=== PATIENT | male | born 1995 | race Caucasian/White ===

== ENCOUNTER 2018-07-14 03:39 | Emergency (ER) | payer OTHER ==
[~2018-07-14] VITALS: Ht 175.3 cm; Wt 74.8 kg
[2018-07-14 04:09] LABS: HEMATOCRIT 50.1 % (42.0-52.0); HEMOGLOBIN 17.7 gm/dL (14.0-18.0); MCH 33.1 pg (26.0-34.0); MCHC 35.4 g/dL (28.0-37.0); MCV 93.7 fL (80.0-100.0); MPV 8.9 fl. (7.2-11.1); NUCLEATED RBCS 0 /100WBC; PLATELET COUNT* 210 thou/uL (150-400); RBC 5.35 mil/uL (4.50-6.00); RDW-CV 12.7 % (10.5-14.5); WBC 6.2 thou/uL (4.0-11.0)
[2018-07-14 04:29] LABS: CALCIUM 8.9 mg/dL (8.5-10.1); CREATININE 1.2 mg/dL (0.6-1.3); POTASSIUM 3.5 mmol/L (3.5-5.1)
[2018-07-14 04:33] LABS: ALBUMIN 4.2 g/dL (3.4-5.0); TOTAL BILIRUBIN 4.4 mg/dL (<0.1-1.0); TOTAL PROTEIN 8.2 g/dL (6.4-8.2)
[2018-07-14] MEDS ORDERED: PHENERGAN 25 MG25 M1 PO ×2 (04:54→05:21)
[2018-07-14 05:38] VITALS: BP 118/76
[2018-07-14 06:59] LABS: ABSOLUTE LYMPHOCYTES 0.4 thou/uL (0.8-5.3); ABSOLUTE MONOCYTES 0.1 thou/uL (0.0-1.2); ABSOLUTE NEUTROPHILS 5.8 thou/uL (1.6-8.1); PLATELET ESTIMATE ADEQUATE
== END 2018-07-14 05:40 | disposition home or self-care (01) ==
LOC: M.ERS 03:39
PROVIDERS: Emergency Medicine
DX: R11.2 Nausea with vomiting, unspecified (principal); R19.7 Diarrhea, unspecified

== ENCOUNTER 2018-10-20 15:27 | Inpatient (IN) | payer OTHER ==
[~2018-10-20] VITALS: Ht 175.3 cm; Wt 74.8 kg
[~2018-10-20 15:27] MED LIST: PHENERGAN 25 MG25 M1 PO
[2018-10-20 15:33] VITALS: BP 96/56
[2018-10-20 16:28] LABS: URINE BILIRUBIN NEGATIVE (Negative); URINE BLOOD NEGATIVE (Negative); URINE CLARITY CLEAR; URINE COLOR YELLOW; URINE GLUCOSE-RANDOM NEGATIVE (Negative); URINE LEUKOCYTES-REFLEX NEGATIVE (Negative); URINE NITRITE-REFLEX NEGATIVE (Negative); URINE PROTEIN NEGATIVE (Negative); URINE UROBILINOGEN 0.2 E.U./dl (0.2-1.0)
[2018-10-20 16:29] LABS: URINE KETONES 3+ (Negative)
[2018-10-20 16:45] LABS: HEMATOCRIT 47.3 % (42.0-52.0); HEMOGLOBIN 16.1 gm/dL (14.0-18.0); MCH 32.1 pg (26.0-34.0); MCV 94.3 fL (80.0-100.0); MPV 9.7 fl. (7.2-11.1); NUCLEATED RBCS 0 /100WBC; PLATELET COUNT* 214 thou/uL (150-400); RBC 5.01 mil/uL (4.50-6.00); WBC 15.9 thou/uL (4.0-11.0)
[2018-10-20 16:58] LABS: ALBUMIN 4.2 g/dL (3.4-5.0); CALCIUM 9.4 mg/dL (8.5-10.1); POTASSIUM 3.7 mmol/L (3.5-5.1); TOTAL BILIRUBIN 3.9 mg/dL (<0.1-1.0); TOTAL PROTEIN 9.3 g/dL (6.4-8.2)
[2018-10-20 17:10] LABS: ABSOLUTE LYMPHOCYTES 0.6 thou/uL (0.8-5.3); ABSOLUTE MONOCYTES 1.4 thou/uL (0.0-1.2); ABSOLUTE NEUTROPHILS 13.8 thou/uL (1.6-8.1)
[2018-10-20 17:11] LABS: PLATELET ESTIMATE ADEQUATE
--- NOTE | 2018-10-20 17:18 | NUR ---
MARY NOTIFIED UPON PT RETURN FROM CT. PT WAS NOT CONNECTED TO MONITOR HE WAS NOT CONNECTED PRIOR TO GOING TO CT
[2018-10-20 19:16] VITALS: BP 112/72
--- NOTE | 2018-10-20 19:27 | NUR ---
PATIENT C/O RLQ ABDOMINAL PAIN RATED 7-8/10. ORDERS PER DR. GREEN/ANESTHESIA TO GIVE FENTANYL IN PREOP.
--- NOTE | 2018-10-20 19:43 | NUR ---
RLQ ABDOMINAL PAIN IMPROVED SOME, BUT STILL RATED 5/10. ADDITIONAL FENTANYL GIVEN AT THIS TIME DOCUMENTED.
[2018-10-20 23:30] VITALS: BP 112/62
[2018-10-21 02:30] VITALS: BP 96/54
[2018-10-21 04:46] LABS: CALCIUM 8.4 mg/dL (8.5-10.1); POTASSIUM 3.9 mmol/L (3.5-5.1); TOTAL BILIRUBIN 2.5 mg/dL (<0.1-1.0); TOTAL PROTEIN 6.8 g/dL (6.4-8.2)
[2018-10-21 05:00] LABS: HEMATOCRIT 39.4 % (42.0-52.0); MCH 32.1 pg (26.0-34.0); MCHC 34.1 g/dL (28.0-37.0); MCV 94.1 fL (80.0-100.0); RBC 4.19 mil/uL (4.50-6.00); RDW-CV 11.9 % (10.5-14.5); WBC 11.7 thou/uL (4.0-11.0)
[2018-10-21 05:46] LABS: HEMOGLOBIN 13.5 gm/dL (14.0-18.0)
--- NOTE | 2018-10-21 07:50 | NUR ---
PATIENT ADMITTED TO UNIT FROM PACU AT APPROXIMATELY 2230. VSS ON RA. PAIN WELL CONTROLLED. REPORT GIVEN FROM PACU NURSE. FAMILY WITH PATIENT. MEDICATIONS GIVEN ORDERED AND CHARTED. DRESSINGS TO ABDOMINAL AREA ARE C/D/I AND AMAN DRAIN IN PLACE TO SUCTION. IV IN LEFT AC-NS @ 100ML/HR. IV ABT GIVEN WITHOUT ANY ADVERSE SIDE EFFECTS NOTED. PATIENT URINATING ADEQUATELY. PATIENT INSTRUCTED TO USE CALL LIGHT WHEN NEEDING ASSISTANCE. HOURLY ROUNDS MADE. WILL CONTINUE WITH PLAN OF CARE AND NURSING TO MONITOR.
[2018-10-21 08:00] VITALS: BP 118/72
--- NOTE | 2018-10-21 18:51 | NUR ---
PT ALERT AND ORIENTED X 4. DENIED PAIN AND NAUSEA IN MORNING. C/O INCREASED ABDOMINAL PAIN IN AFTERNOON. PAIN MANAGED WITH HYDROCODONE AND IV MORPHINE. 1VF INFUSING @ 100 MLS/HR. INCISIONS X 2 WITH DRESSING-INTACT. AMAN DRAIN IN PLACE. VS STABLE. UP TO BR WITH SBA. INCREASED DIET-TOLERATED WELL-DENIED NAUSEA. HOURLY ROUNDS MAINTAINED. CALL LIGHT WITHIN REACH.
[2018-10-21 22:30] VITALS: BP 113/69
[2018-10-22] VITALS: BP 119/76
[2018-10-22 04:00] VITALS: BP 138/72
--- NOTE | 2018-10-22 04:53 | NUR ---
PATIENT RESTLESS FROM TIME TO TIME. C/O PAIN AND SLIGHT NAUSEA THIS AM. SURGERY NOTIFIED. SPOKE WITH DR. ALVAREZ REGARDING C/O PAIN, NAUSEA AND OUTPUT IN AMAN DRAIN. NEW ORDERS GIVEN FOR NAUSEA MEDICATION, PAIN MEDICATION PRN AND LABS TO BE DRAWN THIS AM. NEW ORDER TO MAKE PATIENT NPO AT THIS TIME. VSS ON RA. ABDOMINAL INCISIONS WELL APPROXIMATED AND AMAN DRAIN IN PLACE WITH SLIGHT CLEAR/PINKISH COLORED DRAINAGE. IV IN RIGHT WRIST-NS @ 100ML/HR. PATIENT INSTRUCTED TO USE CALL LIGHT WHEN NEEDING ASSISTANCE. HOURLY ROUNDS MADE. WILL CONTINUE WITH PLAN OF CARE AND NURSING TO MONITOR.
[2018-10-22 05:34] LABS: HEMOGLOBIN 14.2 gm/dL (14.0-18.0); MCH 31.8 pg (26.0-34.0); MCHC 33.9 g/dL (28.0-37.0); MCV 93.7 fL (80.0-100.0); MPV 9.9 fl. (7.2-11.1); RBC 4.48 mil/uL (4.50-6.00); RDW-CV 11.9 % (10.5-14.5); WBC 9.1 thou/uL (4.0-11.0)
[2018-10-22 05:36] LABS: CALCIUM 8.2 mg/dL (8.5-10.1); CREATININE 0.8 mg/dL (0.6-1.3); POTASSIUM 3.6 mmol/L (3.5-5.1)
[2018-10-22 07:00] LABS: ALBUMIN 2.9 g/dL (3.4-5.0); DIRECT BILIRUBIN 0.2 mg/dL (<0.1-0.3); TOTAL PROTEIN 6.9 g/dL (6.4-8.2)
[2018-10-22 08:00] VITALS: BP 119/75
[2018-10-22 11:31] VITALS: BP 113/79
[2018-10-22 15:18] VITALS: BP 114/75
--- NOTE | 2018-10-22 17:07 | PATH ---
[address] [address] PATHOLOGY RPT PROCEDURE Name: JENNY THIBODEAUX Room: [address] IN M.R.#: [id number] Admission: 10/20/18 Date of : 95 Discharge: Report #: [id number] Path Case #: [id number] [facility] Accession Number: [id number] . 01 Material submitted: . APPENDIX . 01 Clinical history: . Acute appendicitis . 02 Diagnosis: Appendix: - Acute appendicitis, periappendicitis and serositis. . (LEILANI:catrachita; 10/22/2018) [facility]/10/22/2018 . 02 Electronically signed: . Elliot Sanchez MD, Pathologist NPI- [id number] . 01 Gross description: . The specimen is received in formalin, labeled "Jenny Thibodeaux, appendix", is a diffusely hemorrhagic appendix measuring 5.2 cm in length and up to 1.2 cm in diameter with abundantly attached indurated, hemorrhagic mesoappendix measuring 4.0 x 1.7 x 1.0 cm. The proximal margin is closed by a linear staple line measuring 1.3 cm in length with an average 0.2 cm width. The staple line and the adjacent serosa is inked black. The serosa is wright-brown and covered by hardin-white fibrinopurulent material towards the distal aspect and with a possible perforation measuring 0.3 x 0.2 cm that is 2.2 cm from the staple line proximal margin. This possible perforation is inked blue. The lumen is filled with dark brown hemorrhagic material and no discrete fecalith. The wall has an average thickness of 0.3 cm. [employer]ader tissue is submitted as follows: A1. Section adjacent to staple line inked black and proximal appendix A2. Possible perforation inked blue. A3. One half of distal tip (SWS; 10/21/2018) SHS/SHS . 02 Pathologist provided ICD-10: K35.80, K65.8 . 02 CPT . 918019 Specimen Comment: A courtesy copy of this report has been sent to Specimen Comment: [phone]. [place] [address] PATHOLOGY RPT PROCEDURE Name: BARBARAJENNY JIMMY Room: [address] IN M.R.#: [id number] Admission: 10/20/18 Date of : 89 Discharge: Report #: [id number] Path Case #: [id number] Specimen Comment: Report sent to Performed at: 01 [facility] [place] [address] [facility] [address], [place], [place] [id number] MD Jaxon Gage MD Phone: [phone] Performed at: 02 [facility] [address], [place], [place] [id number] MD Elliot Sanchez MD Phone: [phone]
--- NOTE | 2018-10-22 17:34 | NUR ---
PT WAS A&Ox4 THROUGHOUT SHIFT. VITALS STABLE. NPO EXCEPT MEDS. IV IN R FA PATENT, INFUING. NAUSEA CONTROLLED WITH ZOFRAN. THREW UP ONCE CLEAR LIQUID. AMAN DRAIN HAS DRAINED A SIGNIFICANT AMOUNT OF CLEAR YELLOW DRAINAGE, CHARTED. PAIN CONTROLLED WITH MORPHINE AND NORCO. UP STAND BY. FAMILY IN ROOM. CALL LIGHT WITHIN REACH. WILL CONTINUE TO MONITOR.
[2018-10-22 22:00] VITALS: BP 118/73
[2018-10-23 04:21] LABS: ABSOLUTE BASOPHILS 0.1 thou/uL (0.0-0.2); ABSOLUTE EOSINOPHILS 0.1 thou/uL (0.0-0.7); ABSOLUTE LYMPHOCYTES 1.3 thou/uL (0.8-5.3); ABSOLUTE NEUTROPHILS 6.4 thou/uL (1.6-8.1); BASOPHILS 0.6 %; EOSINOPHILS 0.6 %; HEMATOCRIT 42.2 % (42.0-52.0); HEMOGLOBIN 14.2 gm/dL (14.0-18.0); MCHC 33.7 g/dL (28.0-37.0); MCV 94.8 fL (80.0-100.0); MONOCYTES 11.3 %; MPV 9.2 fl. (7.2-11.1); NUCLEATED RBCS 0 /100WBC; PLATELET COUNT* 240 thou/uL (150-400); POLYS 72.5 %; RBC 4.45 mil/uL (4.50-6.00); RDW-CV 12.1 % (10.5-14.5); WBC 8.8 thou/uL (4.0-11.0)
[2018-10-23 04:35] LABS: CALCIUM 8.2 mg/dL (8.5-10.1); CREATININE 0.9 mg/dL (0.6-1.3); MAGNESIUM 1.7 mg/dL (1.8-2.4); PHOSPHORUS* 3.4 mg/dL (2.5-4.9); POTASSIUM 3.7 mmol/L (3.5-5.1)
[2018-10-23 08:00] VITALS: BP 110/67
--- NOTE | 2018-10-23 08:11 | NUR ---
PATIENT HAS SLEPT WELL THROUGHOUT THE NIGHT. VSS ON RA. PAIN WELL CONTROLLED. NO NAUSEA OR VOMITING. ABDOMINAL INCISIONS WELL APPROXIMATED AND AMAN DRAIN IN PLACE WITH CLEAR/YELLOW DRAINAGE. IV IN RIGHT WRIST-NS @ 100ML/HR. PATIENT INSTRUCTED TO USE CALL LIGHT WHEN NEEDING ASSISTANCE. HOURLY ROUNDS MADE. WILL CONTINUE WITH PLAN OF CARE AND NURSING TO MONITOR.
[2018-10-23 15:37] VITALS: BP 105/60
[2018-10-23 15:38] VITALS: BP 105/60
--- NOTE | 2018-10-23 17:43 | NUR ---
PT REMAINED A&Ox4 THROUGHOUT SHIFT. DRAIN HAD MINIMAL DRAINAGE OUT. VITALS STABLE. WALKED AROUND ROOM AND HALLS SOME. IV IN R FA PATENT, INFUSING. PAIN CONTROLLED WITH TORADOL. UP STAND BY. TOLERATED CLEAR LIQUID DIET. CALL LIGHT WITHIN REACH. WILL CONTINUE TO MONITOR.
[2018-10-23 19:50] VITALS: BP 115/69
[2018-10-24 04:00] VITALS: BP 111/64
--- NOTE | 2018-10-24 05:48 | NUR ---
PT REMAINED A&O X 4. VITALS, SPO2 STABLE RA. PAIN CONTROLLED WITH IV PAIN MED. NO NAUSEA OR VOMITING. SURGICAL INCISION SITE CLEAN, DRY, INTACT. PT RESTING QUIETLY ON HOURLY ROUNDINGS. IV FLUID IS RUNNING. WILL CONTINUE TO MONITOR.
[2018-10-24 07:30] VITALS: BP 120/64
[2018-10-24 07:46] LABS: HEMATOCRIT 40.2 % (42.0-52.0); HEMOGLOBIN 13.8 gm/dL (14.0-18.0); MCHC 34.3 g/dL (28.0-37.0); MCV 93.3 fL (80.0-100.0); MPV 8.3 fl. (7.2-11.1); RBC 4.31 mil/uL (4.50-6.00); RDW-CV 11.9 % (10.5-14.5); WBC 6.5 thou/uL (4.0-11.0)
[2018-10-24 07:57] LABS: CALCIUM 8.3 mg/dL (8.5-10.1); CREATININE 0.8 mg/dL (0.6-1.3); MAGNESIUM 1.7 mg/dL (1.8-2.4); PHOSPHORUS* 3.7 mg/dL (2.5-4.9); POTASSIUM 3.3 mmol/L (3.5-5.1)
--- NOTE | 2018-10-24 15:23 | NUR ---
PT.RESTING IN BED. SAID HE WOULD PROBABLY GO HOME TOMORROW. 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 LIVES WITH HIS MOM AND DAD. HE IS INDEPENDENT AT HOME AND WORKS. HE DOES NOT HAVE INSURANCE. GAVE HIM PACKET FOR THE UNINSURED. 2 DRUG CARDS GIVEN ALSO. TOLD HIM IF HIS PARENTS HAD INSURANCE HE COULD PROBABLY GET ON THEIR INSURANCE PLANS UNTIL HE WAS 26. HE SAID HE WOULD CHECK INTO IT.
[2018-10-24 15:55] VITALS: BP 123/72
--- NOTE | 2018-10-24 17:50 | NUR ---
ASSUMED CARE OF PATIENT AT APPROX 0730. ALERT AND OREINTED X4. ASSESSMENT COMPLETED AND CHARTED. VSS ON ROOM AIR. NO COMPLAINTS OF NAUSEA OR SOA. PAIN HAS BEEN MINIMAL AND MANAGED WITH TORADOL. FLUIDS INFUSED AND DISCONTINUED PER SURGERY. AMAN DRAIN OPUTPUT THROUGHOUT SHIFT WAS 40. PATIENT UP AND WALKING THE UNIT TODAYWITH STAFF. PASSING GAS AND HAVING BOWEL MOVEMENTS. PATIENT UP STAND BY ASSIST. HOURLY ROUNDS COMPLETED. CALL LIGHT WITHIN REACH. NURSING WILL CONTINUE TO MONITOR.
[2018-10-24 19:50] VITALS: BP 111/71
--- NOTE | 2018-10-25 04:54 | NUR ---
PT REMAINED ALERT AND ORIENTED. PT SLEPT DURING THE NIGHT. PT C/O PAIN, MEDS GIVEN ORDERED. FALL RISK PRECAUTIONS IN PLACE. HOURLY ROUNDING COMPLETED. WILL CONTINUE TO MONITOR.
[2018-10-25 08:00] VITALS: BP 112/68
[2018-10-25] MEDS ORDERED: LEVAQUIN 750 M750 MG PO (09:39)
[2018-10-25] MEDS ORDERED: NORCO 5-325 TA1 EACH PO (11:10)
[2018-10-25 11:14] VITALS: BP 112/68
[2018-10-25] MEDS ORDERED: COLACE100 MG PO (11:30)
[2018-10-25 12:57] VITALS: BP 112/68
--- NOTE | 2018-10-25 12:58 | NUR ---
PATIENT DISCHARGED FROM UNIT AT 1250. ALERT AND ORIENTED X 4. VITAL SIGNS STABLE ON ROOM AIR. AMAN DRAIN DISCONTINUED. IV DISCONTINUED. PAIN BEING MANAGED WITH ORAL MEDICATION. TOLERATING DIET. DENIES NAUSEA. DISCHARGE INSTRUCTIONS, MEDICATION INFORMATION, AND SCRIPTS GIEVN TO PATIENT. LEFT WITH ALL BELONGINGS. PATIENT LEFT WITH MOTHER VIA CAR.
--- NOTE | 2018-10-26 12:35 | OP ---
[address] [address] OPERATIVE REPORT Name: JENNY JIMENEZ Room: [address] IN M.R.#: [id number] Admission: 10/20/18 Attend Phys: Broderick Davila DO Discharge: 10/25/18 Date of : 95 Report #: [id number] THIS REPORT FOR: //name// CC: Broderick TSOREY physician/PCP MD PRIMARY CARE DICTATED BY: Ace Suh DO DATE OF SERVICE: 10/20/2018 PREOPERATIVE DIAGNOSIS: Acute appendicitis. POSTOPERATIVE DIAGNOSIS: Acute perforated appendicitis. SURGEON: Dr. Broderick Davila WOOD SAWYER: Geremias Suh, PGY4 OPERATIONS PERFORMED: Laparoscopic appendectomy. ANESTHESIA: General and local. ESTIMATED BLOOD LOSS: 20 mL. SPECIMENS REMOVED: Appendix with appendicolith. COMPLICATIONS: None. DRAINS: AMAN drain. HISTORY OF PRESENT ILLNESS: The patient is a very pleasant 23-year-old male presented to the ER tonight with some localized right lower quadrant abdominal pain. His pain started approximately 3 days ago and he assumed it was related to some constipation. The patient tried multiple home remedies such as some herbal teas as well as some laxative with positive bowel movements, but no relief of his symptoms. When he presented to the ER, a CT abdomen and pelvis was performed as well as some stat lab work. The CT abdomen and pelvis showed a rather enlarged and inflamed appendix with an obvious appendicolith at the base of the appendix. His white blood cell count was elevated greater than 15,000 and the patient had positive physical exam findings consistent with acute appendicitis. He was seen in the ER and thoroughly evaluated. On examination, the patient had localized right lower quadrant abdominal pain and guarding as well as a positive McBurney tender point and some localized peritonitis. With all of these findings, it was recommended that the patient be taken for a laparoscopic appendectomy. A complete description [place] [address] OPERATIVE REPORT Name: JENNY JIMENEZ Room: [address] [id number] Admission: 10/20/18 Attend Phys: Broderick Davila, DO Discharge: 10/25/18 Date of : 95 Report #: [id number] at length with the patient. All risks, benefits, and complications were discussed including but not limited to infection, bleeding, hernias at incision sites, possible need for an open procedure, possible postoperative abscess formation, injury to surrounding structures such as bowel or bladder, anesthesia complications as well as other common complications associated with the procedure. The patient voiced clear understanding and wished to proceed. DESCRIPTION OF PROCEDURE: After appropriate consents were obtained, the patient was taken to the operating room, laid in supine position. He had SCDs placed on his right lower extremities and a safety strap placed across his lap. All lines were then placed by Anesthesia. The patient was then sedated, intubated by anesthesia without difficulty. His right arm was placed down, his left arm was tucked at his side. The patient's abdomen was then exposed, prepped and draped in a standard sterile fashion. A timeout was performed to correctly identify the patient and procedure. The patient received perioperative antibiotics prior to incision. We then started with a supraumbilical midline incision using #11 blade scalpel. This was carried down through the subcutaneous tissue and to encounter the anterior abdominal wall fascia. Once the fascia was encountered, it was scored using electrocautery and then grasped between 2 Tung clamps. The peritoneal cavity was then entered bluntly using a hemostat. A finger was used to ensure there were no belgica-incisional adhesions, none were present. We then placed a 2-0 Vicryl stay sutures at the superior and inferior aspect of our incision. This was placed in a peggob-ah-ecocu fashion. We then introduced our 12 mm Gu[place]ito trocar and secured it with these previously placed stay sutures. The patient's abdomen was then insufflated to 15 mmHg. A 12 mm 0 scope was introduced into the patient's abdomen. He had some notable adhesions, which appeared to be from a prior open cholecystectomy. These were out of our field of vision. We turned our attention down to the right lower quadrant and there is a minimal amount of serous-appearing fluid in the right pericolic gutter. We then placed our suprapubic port site under direct visualization. This was a 5 mm port site that was placed. We then placed our left lower quadrant port site, which was a 12 mm port. Using blunt graspers, we were able to sweep the small intestine cranially as well as placing the patient in head down and left side down position. This allowed us to better visualize the cecum as well as the terminal ileum. It was obvious that the patient had some significant amount of inflammation in the right lower quadrant. We followed the tinea on the cecum down to encounter the base of the appendix. The appendix was adhered to the abdominal wall. Using blunt graspers, we were able to sweep away any adhesing fat. There was a small perforation that was present once this fat was uncovered. There was some purulent fluid that was draining from the perforation. A suction project management instructor was then obtained and any free fluid was suctioned away immediately. We were then able to free up the entire appendix as well as the mesoappendix and identify the appendix in its entirety. Using a Harmonic scalpel, we dissected through the mesoappendix and to encounter the base of the appendix. Once we were at the base, we then transected the appendix using a 45 mm purple load Endo-JEREL stapler. The appendix was transected at this [place] [id number] OPERATIVE REPORT Name: JENNY JIMENEZ JIMMY Room: [address] IN M.R.#: [id number] Admission: 10/20/18 Attend Phys: Broderick Davila DO Discharge: 10/25/18 Date of : 95 Report #: [id number] point with no obvious bleeding. It was then placed with an EndoCatch pouch. A fecalith did come through the perforation prior to removing the appendix and this was also retrieved and placed in EndoCatch pouch. We irrigated the right lower quadrant thoroughly using 1 liter of sterile solution. All the free fluid was then suctioned away. There was no obvious bleeding from any of the surrounding areas. There were no other signs of any type of abscess or phlegmon. We did place a 15-Salvadorean AMAN drain in the suprapubic port site and this was tracked along the right pericolic gutter near the site of the appendectomy. Once we were pleased with our drain placement, we then removed our trocars under direct visualization. There was no bleeding from either of the trocar sites. The patient's abdomen was then allowed to desufflate and the Guanakito trocar was removed. We injected the port sites using 0.5% Marcaine. The patient's fascia was then reapproximated using 0 Vicryl suture in a [id number]-[id number] fashion. The subcutaneous tissue was then closed using a 3-0 Vicryl suture. The skin was closed over each incision site using a 4-0 Monocryl suture. The drain was secured using a 2-0 nylon suture at the suprapubic port site. Each of the incision sites were then cleaned and dried adequately and Mastisol and Steri-Strips were placed as well as sterile Tegaderm OpSite. We then placed a drain sponge and a sterile Tegaderm over the drain site. Gauze and tape were then applied to each of the incisions to act as added pressure dressings. The patient tolerated the procedure well. He was allowed to awaken and was subsequently extubated in the OR without difficulty. He will be transported to the PACU for further recovery and then we will admit the patient overnight for further observation. I will continue IV antibiotics as well. All counts were correct x 2 at the end of the procedure. Dr. Broderick Davila was present and scrubbed for the entirety of this procedure. <ELECTRONICALLY SIGNED> By: Broderick Davila DO 10/26/18 1235 2150 [id number] Davila DO /nt
== END 2018-10-25 12:50 | disposition home or self-care (01) | DRG 340 ==
LOC: M.ERS 15:27 → M.TBA-ER 18:51 → M.ORTHSURG 21:44 → M.TBA-ER 21:44 → M.ORTHSURG 22:15
PROVIDERS: Nurse Practitioner Family; Surgery; ADMIT Surgery
PROC: 0DTJ4ZZ Resection of Appendix, Percutaneous Endoscopic Approach (ICD-10-PCS; principal; 2018-10-20)
DX: K35.32 Acute appendicitis with perforation, localized peritonitis, and gangrene, without abscess (principal); D72.829 Elevated white blood cell count, unspecified; E80.6 Other disorders of bilirubin metabolism; Z90.49 Acquired absence of other specified parts of digestive tract; Z88.0 Allergy status to penicillin; Z87.891 Personal history of nicotine dependence